=== PATIENT | male | born 1980 | race African-American/Black ===

== ENCOUNTER 2017-04-30 02:28 | Emergency (ER) | payer SELFPAY ==
[~2017-04-30] VITALS: Ht 175.3 cm; Wt 105.0 kg
[2017-04-30] MEDS ORDERED: ONDANSETRON 4MG ODT PO PRN (04:45)
[2017-04-30] MEDS ORDERED: KETOROLAC 30MG/ML VIAL IM ONE (04:45)
[2017-04-30 06:33] VITALS: BP 146/94
== END 2017-04-30 06:34 | disposition home or self-care (01) ==
LOC: ER 02:28
DX: M25.511 Pain in right shoulder (principal); F17.200 Nicotine dependence, unspecified, uncomplicated; X58.XXXA Exposure to other specified factors, initial encounter; Y93.89 Activity, other specified; Y92.013 Bedroom of single-family (private) house as the place of occurrence of the external cause
CPT/HCPCS: 73030; 96372; 99284; J1885; Q0162; A4565